=== PATIENT | male | born 1985 | race Hispanic/Latino ===

== ENCOUNTER 2021-10-14 19:02 | Emergency (ER) | payer OTHER ==
[~2021-10-14] VITALS: Ht 180.3 cm; Wt 117.9 kg
[2021-10-14] MEDS ORDERED: KETOROLAC 30MG VIAL (30MG/ML) IVP ONE (19:30)
[2021-10-14] MEDS ORDERED: LORAZEPAM 1 MG TABLET PO ONE (19:30)
[2021-10-14 19:33] LABS: BASOPHILS % (AUTO) 0.3 % (0.0-5.0); LYMPHOCYTES % (AUTO) 24.6 % (21.0-51.0); MEAN CORPUSCULAR HEMOGLOBIN 32.7 pg (27.0-33.0); MEAN CORPUSCULAR HGB CONC 35.4 g/dL (32.0-36.0); MEAN CORPUSCULAR VOLUME 92.3 fL (79-99); MONOCYTES % (AUTO) 9.3 % (3.0-13.0); NEUTROPHILS % (AUTO) 64.1 % (40.0-77.0); PLATELET COUNT (AUTO) 211 K/uL (130-400); RED BLOOD CELL COUNT(AUTO) 4.44 MIL/uL (4.50-6.20); WHITE BLOOD COUNT (AUTO) 7.1 K/uL (4.8-10.8)
[2021-10-14 19:43] LABS: POTASSIUM 3.5 mmol/L (3.5-5.1)
[2021-10-14 19:58] LABS: CRP QUANTITATIVE < 2.00 mg/L (0.00-9.0)
[2021-10-14 20:13] LABS: TOTAL PROTEIN, SERUM 7.2 g/dL (6.0-8.3)
[2021-10-14 20:21] LABS: CREATINE KINASE, TOTAL 1136 U/L (21-232)
[2021-10-14] MEDS ORDERED: 0.9%NACL 1000ML 1,000 ML IV SCH (20:30)
[2021-10-14] MEDS ORDERED: 0.9%NACL 1000ML 1,000 ML IV STA (20:57)
[2021-10-14 21:40] VITALS: BP 107/81
== END 2021-10-14 21:47 | disposition home or self-care (01) ==
LOC: EDH 19:02
DX: M62.82 Rhabdomyolysis (principal); R07.89 Other chest pain; E11.9 Type 2 diabetes mellitus without complications; F20.9 Schizophrenia, unspecified; F31.9 Bipolar disorder, unspecified; F41.9 Anxiety disorder, unspecified
CPT/HCPCS: 99285; 96374; 71045; 96361; 82550; 84484; 80053; 85025; 86140; 36415; 93005; J7030; J1885

== ENCOUNTER 2021-10-25 22:08 | Emergency (ER) | payer OTHER ==
[2021-10-25 22:14] VITALS: BP 143/78
[2021-10-25 22:29] LABS: BASOPHILS % (AUTO) 0.2 % (0.0-5.0); EOSINOPHILS % (AUTO) 0.1 % (0.0-8.0); LYMPHOCYTES % (AUTO) 13.9 % (21.0-51.0); MEAN CORPUSCULAR HEMOGLOBIN 32.7 pg (27.0-33.0); MEAN CORPUSCULAR HGB CONC 35.8 g/dL (32.0-36.0); MEAN CORPUSCULAR VOLUME 91.5 fL (79-99); NEUTROPHILS % (AUTO) 78.3 % (40.0-77.0); PLATELET COUNT (AUTO) 208 K/uL (130-400); RED BLOOD CELL COUNT(AUTO) 4.37 MIL/uL (4.50-6.20); RED CELL DISTRIBUTION WIDTH 12.2 % (11.0-15.5); WHITE BLOOD COUNT (AUTO) 11.4 K/uL (4.8-10.8)
[2021-10-25 22:38] LABS: CREATININE 1.1 mg/dL (0.5-1.5); POTASSIUM 3.4 mmol/L (3.5-5.1)
[2021-10-25 22:42] LABS: ALBUMIN 4.2 g/dL (3.5-5.0); TOTAL PROTEIN, SERUM 7.5 g/dL (6.0-8.3)
[2021-10-25] MEDS ORDERED: ALBU8.5H8 IH (23:17)
[2021-10-25] MEDS ORDERED: AMOX1TAB16 PO (23:17)
[2021-10-25] MEDS ORDERED: IBUP-2071 PO (23:17)
[2021-10-25] MEDS ORDERED: CEFTRIAXONE 1G VIAL IVP ONE (23:30)
[2021-10-25] MEDS ORDERED: AZITHROMYCIN 250 MG TABLET PO ONE (23:30)
== END 2021-10-25 23:36 | disposition home or self-care (01) ==
LOC: EDH 22:08
DX: J18.9 Pneumonia, unspecified organism (principal); R07.89 Other chest pain; R03.0 Elevated blood-pressure reading, without diagnosis of hypertension; F31.9 Bipolar disorder, unspecified; F17.200 Nicotine dependence, unspecified, uncomplicated
CPT/HCPCS: 99285; 96374; 71045; 84484; 80053; 85025; 36415; 93005; J0696